=== PATIENT | male | born 1955 | race Caucasian/White ===

== ENCOUNTER → 2020-02-02 11:28 | Outpatient (CLI) | payer OTHER, SELFPAY ==
[2020-02-03 07:51] LABS: COVID19 Sendout Not Detected (Not Detect)
== END ==
PROVIDERS: Visit Provider Physician Assistant
DX: Z11.59 Encounter for screening for other viral diseases (principal)
CPT/HCPCS: 87635

== ENCOUNTER 2020-02-05 09:05 | Day surgery (SDC) | payer OTHER, SELFPAY ==
--- NOTE | 2020-02-05 | PATH_ITS ---
[facility] Accession Number: [id number] . 01 Material submitted: . rectum - RECTAL POLYP . 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 MRV 02/06/2020 1413 Local . 02 Electronically signed: . Brandy Barakat MD, Pathologist NPI- [id number] . 01 Gross description: . RECTAL POLYP: Received in formalin is 1 fragment(s) of triana, soft tissue measuring 0.1 x 0.1 x 0.1 cm submitted entirely in 1 cassette(s) /MARILYN 02/06/2020 0151 Local . 02 Pathologist provided ICD-10: K62.1 . 02 CPT . 367556 Performed at: 01 [facility] [address] [id number] MD Curry Carter MD Phone: [phone] Performed at: 02 [facility] [address] [place], [place] [id number] MD Brandy Barakat MD Phone: [phone]
[2020-02-05 09:42] VITALS: BP 141/92; PULSE 81; RESP 16; TEMP 36.6; O2SAT 94; BMI 39.3
[2020-02-05] MEDS: SODIUM CHLORIDE 0.9% 1,000 ML 42 ML IV (10:28)
--- NOTE | 2020-02-05 10:54 | PM.HP.1 ---
History of Present Illness History of Present Illness Date Patient Seen: 02/05/20 Time Patient Seen: 10:54 Chief complaint: [id number] Narrative: Screening. Last colonoscopy over 10 years ago Patient History Family & Social History Social History: household members other Tobacco & Substance use: Smoking Status Never smoker alcohol intake current alcohol intake frequency a few times a month Substance Use Type does not use Meds Home Medications and Allergies Home Medications Medication Instructions Recorded Confirmed Type aspirin 81 mg PO DAILY 02/05/20 02/05/20 History atorvastatin 40 mg PO BEDTIME 02/05/20 02/05/20 History clotrimazole 1 applic TOPICAL BID 02/05/20 02/05/20 History exenatide microspheres [Bydureon] 2 mg SUBCUT QWEEK 02/05/20 02/05/20 History insulin glargine [Lantus U-100 18 unit SUBCUT BEDTIME 02/05/20 02/05/20 History Insulin] lisinopril 20 mg PO DAILY 02/05/20 02/05/20 History metformin 500 mg PO BID 02/05/20 02/05/20 History metoprolol succinate 100 mg PO DAILY 02/05/20 02/05/20 History omeprazole 20 mg PO 02/05/20 History pioglitazone 15 mg PO DAILY 02/05/20 02/05/20 History tamsulosin 0.4 mg PO DAILY 02/05/20 02/05/20 History tramadol 50 mg PO DAILY 02/05/20 02/05/20 History Allergies Allergy/AdvReac Type Severity Reaction Status Date / Time iodine Allergy Mild Rash Verified 02/05/20 09:41 Exam Vital Signs (past 8 hours): - 02/05/20 09:42 Temperature 97.8 F Pulse Rate 81 Respiratory Rate 16 Blood Pressure 141/92 H Pulse Oximetry 94 Oxygen Delivery Method Room Air Oxygen Flow Rate 0 Narrative Exam Narrative: Oropharynx free of lesions Chest clear to auscultation percussion Cardiac exam reveals no S3 or murmur Assessment & Plan Assessment & Plan narrative: Screening colonoscopy. Risks, benefits, alternatives have been explained.
--- NOTE | 2020-02-05 10:56 | PM.OP.ENDO ---
Operative Date/Time/Diagnoses Date of procedure: 02/05/20 Time of procedure: 10:56 Pre-op diagnosis: See indication and findings Procedure & Clinicians Study performed: Colonoscopy Same procedure as scheduled: Yes Indications: Screening Surgeon: Harriet Loo Procedure Notes Procedure in detail: After informed consent was obtained the patient was placed in left lateral decubitus position. The video colonoscope was introduced the rectum slowly advanced cecum. On slow withdrawal mucosa was carefully examined. The scope was removed. The patient tolerated procedure well. Blood loss none Complications none Sedation Total sedation time 21 minutes Fentanyl 100 mg Versed 7 mg IV titration Findings 1. 4 mm rectal polyp Jumbo biopsy removed completely 2. Otherwise negative colonoscopy to cecum Mr. qureshi will be given his pathology results as they return. Even if this is adenomatous he probably does not need follow-up for 7-10 years as per the new colon polyp guidelines
[2020-02-05] MEDS: MIDAZOLAM 5 MG/5 ML VIAL IV ×7 (11:04→11:16)
[2020-02-05] MEDS: fentaNYL 250 MCG/5 ML INJ IV (11:04)
[2020-02-05 11:32] VITALS: BP 112/82; PULSE 91; RESP 12; TEMP 36.1; O2SAT 92
[2020-02-05 11:42] VITALS: BP 121/86; PULSE 83; RESP 18; O2SAT 95
[2020-02-05 11:47] VITALS: BP 129/82; PULSE 80; RESP 12; O2SAT 95
== END 2020-02-05 12:06 | disposition home or self-care (01) ==
LOC: ENDO 09:08
PROVIDERS: PCP Family Medicine; Referring Provider Internal Medicine Gastroenterology; Visit Provider Internal Medicine Gastroenterology
PROC: 0DJD8ZZ Inspection of Lower Intestinal Tract, Via Natural or Artificial Opening Endoscopic (ICD-10-PCS; CPT 45378; principal; 2020-02-05 11:00)
DX: Z12.11 Encounter for screening for malignant neoplasm of colon (principal); K62.1 Rectal polyp
CPT/HCPCS: 45380; J2250; J3010

== ENCOUNTER → 2021-03-15 10:53 | Outpatient (CLI) | payer MEDICARE, OTHER, SELFPAY ==
--- NOTE | 2021-03-15 | DI.RAD.S_ITS ---
PROCEDURE: FL BARIUM SWALLOW INDICATIONS: Dysphagia, unspecified COMPARISON: None. FINDINGS: Function: Tertiary contractions are noted in mid to distal esophageal wall muscles with slight delayed transition of oral contrast through distal esophagus. Mild gastroesophageal reflux is noted during the study. There is normal transit of a calibrated barium tablet through the esophagus into the stomach. Morphology: Air-contrast images demonstrate normal mucosal morphology. Single contrast views show no esophageal strictures, extrinsic mass effects, or diverticula. Limited images of the stomach demonstrate normal appearance. IMPRESSION: 1. Tertiary contraction in mid to distal esophageal wall muscles with slightly delayed contrast transition through distal esophagus. No high-grade stenosis or obstruction. No large ulceration or intraluminal filling defect. 2. Mild gastroesophageal reflux. Dictated by: Jero Self M.D. on 03/15/2021 at 12:22 Approved by: Jeor Self M.D. on 03/15/2021 at 12:24
== END ==
PROVIDERS: PCP Family Medicine; Referring Provider Family Medicine; Visit Provider Family Medicine
DX: R13.10 Dysphagia, unspecified (principal); K21.9 Gastro-esophageal reflux disease without esophagitis
CPT/HCPCS: 74220

== ENCOUNTER → 2021-05-08 14:45 | Outpatient (CLI) | payer MEDICARE, OTHER, SELFPAY ==
[2021-05-08 16:23] LABS: COVID19 -Nasal RAPID Negative (Negative)
== END ==
PROVIDERS: PCP Family Medicine; Referring Provider Physician Assistant; Visit Provider Physician Assistant
DX: Z01.812 Encounter for preprocedural laboratory examination (principal); Z20.822 Contact with and (suspected) exposure to COVID-19
CPT/HCPCS: 87635

== ENCOUNTER 2021-05-11 10:42 | Day surgery (SDC) | payer MEDICARE, OTHER, SELFPAY ==
--- NOTE | 2021-05-11 | PATH_ITS ---
[facility] Accession Number: [id number] . 01 Material submitted: . gastrointestinal site - GASTRIC POLYP BIOPSY . 01 Clinical history: . SDC . 02 Diagnosis: Gastric Polyp, Biopsy: Fundic gland polyp. No evidence of Helicobacter organisms on H/E stain. Negative for intestinal metaplasia. Negative for dysplasia and malignancy. . [facility] 05/13/2021 1649 Local . 02 Electronically signed: . Yousif Billingsley MD, PhD, Pathologist NPI- [id number] . 01 Gross description: . GASTRIC POLYP BIOPSY: Received in formalin is 1 fragment(s) of triana, soft tissue measuring 0.3 x 0.3 x 0.2 cm submitted entirely in 1 cassette(s) /TANK 05/12/2021 0150 Local . 02 Pathologist provided ICD-10: R13.10, K31.7 . 02 CPT . 040304 Performed at: 01 [facility] [address] [facility], [place], [place] [id number] MD Curry Carter MD Phone: [phone] Performed at: 02 [facility] [address] [place], [place] [id number] MD Brandy Barakat MD Phone: [phone]
[2021-05-11 11:05] VITALS: BP 137/76; PULSE 73; RESP 18; TEMP 36.7; O2SAT 94; BMI 44.1
[2021-05-11] MEDS: SODIUM CHLORIDE 0.9% 1,000 ML 84 ML IV (11:20)
--- NOTE | 2021-05-11 12:35 | PM.HP.1 ---
History of Present Illness History of Present Illness Date Patient Seen: 05/11/21 Time Patient Seen: 12:35 Chief complaint: SDC Narrative: I reviewed my note from April 13. No changes. Patient History Family & Social History Social History: household members none,other Tobacco & Substance use: Smoking Status Never smoker alcohol intake current alcohol intake frequency a few times a month Substance Use Type does not use Meds Home Medications and Allergies Home Medications Medication Instructions Recorded Confirmed Type aspirin 81 mg tablet,delayed 81 mg PO DAILY 02/05/20 05/11/21 History release atorvastatin 40 mg tablet 40 mg PO BEDTIME 02/05/20 05/11/21 History metformin 500 mg PO BID 02/05/20 05/11/21 History metoprolol succinate 100 mg 100 mg PO DAILY 02/05/20 05/11/21 History tablet,extended release 24 hr omeprazole 20 mg capsule,delayed 20 mg PO DAILY 02/05/20 05/11/21 History release pioglitazone 15 mg tablet 15 mg PO DAILY 02/05/20 05/11/21 History tamsulosin 0.4 mg capsule 0.4 mg PO DAILY 02/05/20 05/11/21 History tramadol 50 mg tablet 50 mg PO DAILY 02/05/20 05/11/21 History dulaglutide 0.75 mg/0.5 mL 0.75 mg SUBCUT QWEEK 05/11/21 05/11/21 History subcutaneous pen injector (Trulicity) lisinopril 10 mg tablet (Zestril) 10 mg PO DAILY 05/11/21 05/11/21 History metoclopramide HCl 5 mg tablet 5 mg PO QAC 05/11/21 05/11/21 History trazodone 50 mg tablet 50 mg PO DAILY 05/11/21 05/11/21 History Allergies Allergy/AdvReac Type Severity Reaction Status Date / Time iodine Allergy Mild Rash Verified 02/05/20 09:41 Review of Systems Review of Systems ROS: Yes All systems reviewed with the patient and are negative except as otherwise documented Exam Vital Signs (past 8 hours): - 05/11/21 11:05 Temperature 98.0 F Pulse Rate 73 Respiratory Rate 18 Blood Pressure 137/76 Pulse Oximetry 94 Oxygen Delivery Method Room Air Const General: cooperative and comfortable Orientation: alert HENMT Head: normocephalic Ears: external ears normal Nose: external nose normal Face and sinus: normal facial exam Mouth: oral mucosae normal Eyes General: appearance normal, both eyes and all related structures Neck Neck: normal visual inspection Chest Chest: normal inspection of the chest Resp Effort & Inspection: normal respiratory effort Auscultation: clear to auscultation bilaterally Cardio Rate: regular rate Rhythm: regular rhythm Heart Sounds: no murmurs GI Inspection: normal to inspection Palpation: soft and No tender Auscultation: normal bowel sounds Skin General: no rashes or lesions noted and No jaundice Neuro General: patient alert and moves all extremities Cognition: normal cognition Speech: speech normal Extrem General: no pedal edema Psych Appearance: grossly normal Assessment & Plan Assessment & Plan narrative: Dysphagia to liquids and solids. Reassuring barium swallow. Diagnostic EGDs proceed. Time Spent With Patient Critical Care time: I spent a total of [] minutes of critical care time on this patient's care today; this time is exclusive of procedural time.
--- NOTE | 2021-05-11 12:36 | PM.PREOP ---
Pre-operative Note COVID-19 COVID-19 status: Negative Result date/Date tested (Pos, Neg/Pending): 05/08/21 Interval Note History & Physical reviewed/Exam performed by Physician: Yes Changes to H&P: No ASA Class (for procedural sedation): II
--- NOTE | 2021-05-11 12:50 | PM.OP.EGD ---
Operative Date/Time/Diagnoses Date of procedure: 05/11/21 Time of procedure: 12:50 Pre-op diagnosis: Dysphagia Post-op diagnosis: same Procedure & Clinicians Study performed: EGD with biopsy Same procedure as scheduled: Yes Indications: Dysphagia Surgeon: Rafael Allen Procedure Notes SCOAP/Timeout: Done Procedure in detail: After the risks and benefits were explained, written and verbal informed consent was obtained. The patient was brought into the procedure room and placed into the left lateral decubitus position. Please see nurse engine test cell technician notes for sedation details. The scope was introduced into the mouth through the bite block and advanced under direct visualization to the 2nd portion of the duodenum. The scope was slowly withdrawn carefully examining the mucosa for any defects or lesions. Retroflexed views were accomplished in the stomach. The stomach was decompressed, the scope was then removed from the patient who tolerated the procedure well. Sedation minutes: 7 Complications: none Impression: 1. Duodenum: this appeared visually normal from the bulb through to the 2nd portion. 2. Stomach: There were few diminutive benign-appearing polyps in the proximal stomach and fundus region 1 of these was sampled for histopathologic analysis. Otherwise there is no obvious mucosal anomaly in the stomach. No outlet obstruction no ulcers no mass lesions. Retroflexed view disclosed a very subtle sliding hiatal hernia 3. Esophagus: The squamocolumnar junction correlated with the top of the gastric folds. GEJ was at about 41-42 cm from the incisors. No erosive esophagitis. No strictures no mass lesions visually the esophagus appeared normal with the exception of obvious lower esophageal sphincter mechanisms spasm. This required a considerable pause to await relaxation and thereafter be able to advance the scope through into stomach. We took multiple photos of this phenomenon. Endoscopic diagnosis 1. Very subtle sliding hiatal hernia 2. Tense intermittently spastic lower esophageal sphincter mechanism 3. Diminutive gastric polyps Post-procedure Plan for aftercare: 1. Await histopathology 2. Esophageal manometry will be arranged. Disposition: PACU
[2021-05-11 12:55] VITALS: BP 107/65; PULSE 76; RESP 17; TEMP 36.6; O2SAT 95
[2021-05-11 12:59] VITALS: BP 111/64; PULSE 77; RESP 18; O2SAT 94
[2021-05-11 13:04] VITALS: BP 109/56; PULSE 79; RESP 22; O2SAT 93
[2021-05-11 13:09] VITALS: BP 114/72; PULSE 71; RESP 20; TEMP 36.6; O2SAT 95
[2021-05-11 13:22] VITALS: BP 118/63; PULSE 63; RESP 14; TEMP 36.4; O2SAT 96
== END 2021-05-11 13:43 | disposition home or self-care (01) ==
PROVIDERS: PCP Family Medicine; Referring Provider Internal Medicine Gastroenterology; Visit Provider Internal Medicine Gastroenterology
PROC: 0DJ08ZZ Inspection of Upper Intestinal Tract, Via Natural or Artificial Opening Endoscopic (ICD-10-PCS; CPT 43235; principal; 2021-05-11 14:00)
DX: R13.10 Dysphagia, unspecified (principal); E11.9 Type 2 diabetes mellitus without complications; Z79.84 Long term (current) use of oral hypoglycemic drugs; I10 Essential (primary) hypertension; K44.9 Diaphragmatic hernia without obstruction or gangrene; K31.7 Polyp of stomach and duodenum
CPT/HCPCS: 43239; J2704